=== PATIENT | male | born 1960 | race Two or more races ===

== ENCOUNTER 2020-02-05 10:38 | Inpatient (IN) | payer MEDICARE, OTHER ==
[~2020-02-05] VITALS: Ht 180.3 cm; Wt 83.0 kg
--- NOTE | 2020-02-05 10:38 | NUR ---
PT KALYN HERNANDEZ FROM [facility]. ON A 5150 HOLD FOR TRYING TO JUMP OFF A FREEWAY BRIDGE. 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 VERBALLY RESPONSIVE. AWAITING MD AMEZQUITA.
--- NOTE | 2020-02-05 10:40 | NUR ---
DR ANAYA AT BEDSIDE FOR EVAL.
--- NOTE | 2020-02-05 10:50 | NUR ---
ETL LEAD AT BEDSIDE FOR BLOOD DRAW.
[2020-02-05 10:55] LABS: BASOPHILS % (AUTO) 0.6 % (0.0-2.0); EOSINOPHILS % (AUTO) 4.7 % (0.0-6.0); HEMATOCRIT 41 % (39-51); HEMOGLOBIN 13.3 g/dL (13.5-17.5); MEAN CORPUSCULAR HGB CONC 32 g/dl (31.0-36.0); MEAN CORPUSCULAR VOLUME 92 fL (80-96); MONOCYTES # (AUTO) 0.5 /CMM (0.1-1.30); MONOCYTES % (AUTO) 7.7 % (2.0-12.0); NEUTROPHILS # (AUTO) 4.2 /CMM (1.8-8.9); PLATELET COUNT (AUTO) 202 /CMM (150-450); RED BLOOD CELL COUNT(AUTO) 4.46 MIL/uL (4.5-6.0)
[2020-02-05 11:01] LABS: CALCIUM, SERUM 8.3 mg/dL (8.5-10.1); CARBON DIOXIDE 29 mmol/L (21-32); CHLORIDE 107 mmol/L (98-107); GLUCOSE 79 mg/dL (74-106); POTASSIUM 4.2 mmol/L (3.5-5.1); SODIUM SERUM 143 mmol/L (136-145); UREA NITROGEN, BLOOD 14 mg/dL (7-18)
--- NOTE | 2020-02-05 11:05 | NUR ---
PT STILL UNABLE TO PROVIDE URINE SAMPLE AT THIS TIME.
[2020-02-05 11:07] LABS: ALANINE AMINOTRANSFERASE 108 U/L (12-78); ALBUMIN 3.2 g/dL (3.4-5.0); ALCOHOL, BLOOD < 3 mg/dL (0-0); ALKALINE PHOSPHATASE 54 U/L (46-116); ASPARTATE AMINOTRANSFERASE 59 U/L (15-37); BILIRUBIN,DIRECT 0.1 mg/dL (0.0-0.2); BILIRUBIN,TOTAL 0.2 mg/dL (0.2-1.0); TOTAL PROTEIN, SERUM 6.3 g/dL (6.4-8.2)
[2020-02-05 11:08] LABS: ACETAMINOPHEN < 2 ug/ml (10-30); SALICYLATE < 2.8 mg/dL (2.8-20.0)
[2020-02-05] MEDS ORDERED: HALDOL (11:11)
--- NOTE | 2020-02-05 12:08 | NUR ---
TRANSPORTED TO FLOOR IN STABLE CONDITION.
--- NOTE | 2020-02-05 12:15 | NUR ---
JAVA WEB ENGINEER NOTE: PATIENT IS A 60 YEAR OLD MALE ADMITTED TO THE UNIT ON A 5150 HOLD FOR DTS. PATIENT WAS SEEN BY A PASSERBY ATTEMPTING TO CLIMB THE FENCE OF A FREEWAY OVERPASS AND CALLED 911. PT ADMITTED HE WAS ATTEMPTING TO COMMIT SUICIDE BY JUMPING OFF THE FREEWAY OVERPASS. PT HAS A HISTORY OF PARANOID SCHIZOPHRENIA AND WAS TRIGGERED BY DELUSIONAL THOUGHTS OF NEEDING TO KILL SELF IN ORDER TO STAY A EVANGELICAL DUE TO FEELINGS OF GUILT. PT REPORTS NO MEDICAL HISTORY AND COMPLIANCE WITH UNKNOWN DOSE OF HALDOL DAILY. PT IS A+OX3, ABLE TO MAKE NEEDS KNWON. PT DENIES SI AT PRESENT TIME. PT IS ABLE TO CONTRACT FOR SAFETY AT PRESENT TIME. DENIES HI/AH/VH BUT APPEARS TO BE RESPONDING TO INTERNAL STIMULI. PT HAS A FLAT AFFECT AND IS WITHDRAWN. SPEECH IS CLEAR, PRESSURED AND RAMBLING. PT IS DISHEVELED AND UNCLEAN. PT REPORTS BEING HOMELESS FOR 1.5 MONTHS. PT'S SKIN IS INTACT. 3+ EDEMA NOTED TO LEFT LOWER LEG, 2+ NOTED TO RIGHT. PT PLACED CLOSE TO THE NURSES STATION WITH Q15MIN CHECKS. PT ORIENTED TO THE UNIT. HANDBOOK GIVEN WITH PATIENT'S RIGHTS AND GUIDE TO PRESCRIPTIONS. PT VERBALIZED UNDERSTANDING.
[2020-02-05] MEDS ORDERED: BLOOD SUGAR DIAGNOSTIC 1 EACH STRIP IN ONE (13:00)
[2020-02-05] MEDS ORDERED: MAGNESIUM HYDROXIDE 30 ML UDC PO PRN (13:00)
[2020-02-05] MEDS ORDERED: MAG HYDROX/AL HYDROX/SIMETH 30 ML UDC PO PRN (13:00)
[2020-02-05 16:00] VITALS: BP 133/81
--- NOTE | 2020-02-05 19:42 | NUR ---
RN OPENING NOTES RECEIVED REPORT FROM DAYSHIFT RN. FOUND Pt AWAKE, RESTING IN BED. NO S/S OF ACUTE DISTRESS OR SOB NOTED. Pt IS A/OX3, VERBAL, ABLE TO MAKE NEEDS KNOWN. SAFETY MEASURES IN PLACE. WILL CONTINUE TO MONITOR Pt's CONDITION AND SAFETY THROUGHOUT THE NIGHT.
[2020-02-05 20:02] VITALS: BP 141/80
[2020-02-05] MEDS: ACETAMINOPHEN 325 MG TABLET PO PRN (20:21)
[2020-02-05 20:30] VITALS: BP 141/80
--- NOTE | 2020-02-06 06:30 | NUR ---
RN CLOSING NOTES Pt IS UP TAKING A SHOWER AT THIS TIME. NO SIGNIFICANT CHANGES NOTED DURING THE NIGHT. NO S/S OF ACUTE DISTRESS OR SOB NOTED. ALL NEEDS MET AND ATTENDED TO. WILL ENDORSE TO DAYSHIFT RN FOR Pt's CAM.
[2020-02-06 07:26] LABS: ALBUMIN 3.2 g/dL (3.4-5.0); BILIRUBIN,TOTAL 0.3 mg/dL (0.2-1.0); CALCIUM, SERUM 9.6 mg/dL (8.5-10.1); POTASSIUM 3.6 mmol/L (3.5-5.1); TOTAL PROTEIN, SERUM 6.4 g/dL (6.4-8.2)
[2020-02-06 07:32] LABS: CHOLESTEROL 181 mg/dL (<200); HDL CHOLESTEROL 62 mg/dL (40-60); LDL 103 mg/dL (0-99); TRIGLYCERIDES 91 mg/dL (30-150)
[2020-02-06 08:00] VITALS: BP 150/90
--- NOTE | 2020-02-06 09:46 | NUR ---
GPS RN OPENING NOTE: PT AWAKE IN THE ROOM TOOK A SHOWER NO ACUTE DISTRESS NOTED. PT DENIES CURRENT SUICIDAL THOUGHTS. PT IS HOMELESS. PT HAS HISTORY OF PARANOID SCHIZOPHRENIA AND TAKES UNKNOWN . WILL CONT TO MONITOR PT FOR SAFETY AND BEHAVIOR PER GPS PROTOCOL.
--- NOTE | 2020-02-06 10:13 | NUR ---
GPS RN NOTE: ORDERS FROM DR VALDEZ TO COLLECT SWAB FOR COVID 19 TEST NO ISOLATION NEEDED. ORDER PLACED AND CARED OUT. Addendum: 02/06/20 at 1020 by ANGELA ALMANZAR RN WRONG NOTE FOR DIFFERENT PT
--- NOTE | 2020-02-06 12:06 | NUR ---
INITIAL DISCHARGE NOTE: Pt is homeless and may need placement. SW will help form a safe and proper discharge in collaboration with MD.
--- NOTE | 2020-02-06 13:48 | NUR ---
Individual Counseling: This SW met with the pt. at bedside. The patient presented laying in his bed with bed covers up to his neck. The SW engaged the patient in a conversation about his current mood. However, patient did not respond to SW. The patient did not make appropriate eye contact. Patient's was looking around towards ceiling. SW encouraged patient to participate in therapeutic millieu. Patient did not respond to SW's questions. SW asked patient if he would prefer that SW return later. SW asked patient if he had any questions for SW. Patient stated, " I want to get out of here as soon as possible. The patient's voice was shaky and appeared highly anxious. SW informed patient that other SW will assist with discharge planning. Patient will be invited to the next therapeutic millieu.
[2020-02-06 16:00] VITALS: BP 135/66
--- NOTE | 2020-02-06 17:41 | NUR ---
GPS RN NOTE: PATIENT FEELING ANXIOUS KIMBERLY VOICES TELLING HIM ABOUT GILT OF GOD.ATIVAN 1 MG PO PRN GIVEN PER ORDER WILL CONTINUE MONITORING FOR SAFETY AND BEHAVIOR.
[2020-02-06 20:00] VITALS: BP 132/77
[2020-02-06 20:04] VITALS: BP 132/77
[2020-02-06] MEDS: BENZTROPINE MESYLATE (1 MG) 1 MG TABLET PO SCH (20:41)
[2020-02-06] MEDS: HALOPERIDOL 5 MG TABLET PO SCH (20:41)
[2020-02-07 08:52] VITALS: BP 125/80
[2020-02-07] MEDS: BENZTROPINE MESYLATE (1 MG) 1 MG TABLET PO SCH ×4 (08:52→16:33)
[2020-02-07] MEDS: HALOPERIDOL 5 MG TABLET PO SCH ×4 (08:52→16:33)
--- NOTE | 2020-02-07 10:40 | NUR ---
GPS/RN-NOTES DR. MICHAEL CASETLLANO IN THE UNIT WITH VERBAL ORDER OF ACCU CHECK BID ,NO COVERAGE. NOTED AND CARRIED OUT.
--- NOTE | 2020-02-07 14:27 | NUR ---
INDIVIDUAL INTERVENTION: SW attempted to provide individual counseling to pt, however, pt did not respond to SW pt did not engage in conversation and did not maintain eye contact. Pt then got up from bed and went to the shower room. Pt then pointed at the door so it could be opened. Pt has been displaying OCD behaviors and showers several times a day.
[2020-02-07] MEDS: BLOOD SUGAR DIAGNOSTIC 1 EACH STRIP IN SCH (16:38)
[2020-02-07 17:54] VITALS: BP 132/78
[2020-02-07 20:13] VITALS: BP_SYST 135; BP_DIAS 79; BP_DIAS 99
[2020-02-07] MEDS: DIVALPROEX SODIUM 250 MG TABLET.DR PO SCH (21:06)
--- NOTE | 2020-02-08 00:37 | NUR ---
GPS RN NOTES: REFUSED RESTORIL UPON DOING ROUNDS, PT AWAKE AND TALKING TO SELF. ENCOURAGE PT TO EXPRESS THOUGHTS AND FEELINGS. PT STATED, "CAN I JUST HAVE A PENCIL AND PAPER?" GAVE PT PAPER AND PENCIL. OFFERED PT RESTORIL PO PRN ORDERED. PT REFUSED AND STATED THAT HE ALREADY SLEPT WELL DURING THE DAY. EXPLAIN RISKS AND BENEFITS OF SLEEP. PT STILL REFUSED X 3.
[2020-02-08 08:00] VITALS: BP 120/75
[2020-02-08] MEDS: BLOOD SUGAR DIAGNOSTIC 1 EACH STRIP IN SCH ×2 (09:20→16:19)
[2020-02-08] MEDS: BENZTROPINE MESYLATE (1 MG) 1 MG TABLET PO SCH ×3 (09:20→16:19)
[2020-02-08] MEDS: DIVALPROEX SODIUM 250 MG TABLET.DR PO SCH ×3 (09:20→16:18)
[2020-02-08] MEDS: HALOPERIDOL 5 MG TABLET PO SCH ×3 (09:20→16:19)
--- NOTE | 2020-02-08 15:58 | NUR ---
INDIVIDUAL INTERVENTION: SW attempted to provide individual counseling to pt, however, pt did not respond to SW pt did not engage in conversation and did not maintain eye contact. Pt is easily agitated and labile. Pt not appropriate for individual counseling at this time.
[2020-02-08 16:00] VITALS: BP 119/70
--- NOTE | 2020-02-08 18:25 | NUR ---
Closing note Patient sit in chair in dining room, does no appears pain or any discomfort. Noticed agitated, anxious behavior, given prn Remeron. Respiratory even and unlabored in room air. Skin is war to touch, kept clean/dry. Will continue to monitor for safety. Addendum: 02/08/20 at 1830 by MIGUEL A GAMEZ RN Error
--- NOTE | 2020-02-08 18:30 | NUR ---
Closing note Patient in bed in room, does no appears pain or any discomfort, pt remains calm. Respiratory even and unlabored in room air. Skin is war to touch, clean/dry, Keep bed in lock with low position. Will continue to monitor for safety.
[2020-02-08 20:20] VITALS: BP 132/72
[2020-02-09 08:00] VITALS: BP 138/87
[2020-02-09] MEDS: BENZTROPINE MESYLATE (1 MG) 1 MG TABLET PO SCH ×3 (08:34→21:18)
[2020-02-09] MEDS: DIVALPROEX SODIUM 250 MG TABLET.DR PO SCH (08:34)
[2020-02-09] MEDS: HALOPERIDOL 5 MG TABLET PO SCH ×3 (08:34→21:18)
[2020-02-09] MEDS: BLOOD SUGAR DIAGNOSTIC 1 EACH STRIP IN SCH ×2 (09:00→16:49)
--- NOTE | 2020-02-09 10:48 | NUR ---
GPS/RN PT WAS COMPLIANT WITH SCHEDULED MEDS FOR 0900, HOWEVER HE STATING THAT HE IS NOT GOING TO TAKE ANY MEDS TILL HE SEE HIS DOCTOR.
[2020-02-09] MEDS ORDERED: LORAZEPAM INJ 2 MG/ML VIAL IM ONE (11:00)
[2020-02-09] MEDS ORDERED: HALOPERIDOL LACTATE INJ 5 MG/ML VIAL IM ONE (11:00)
[2020-02-09] MEDS ORDERED: diphenhydrAMINE HCL 50 MG/ML VIAL IM ONE (11:00)
--- NOTE | 2020-02-09 11:15 | NUR ---
GPS/RN chemical restraint haldol 5mg im, ativan 2mg im and benadryl 25mg given as per dr Duke orders for agressive behavior, screaming and not being redirectable
[2020-02-09 16:00] VITALS: BP 141/88
--- NOTE | 2020-02-09 16:49 | NUR ---
GPS/RN PT REFUSED ACCUCHECK OFFERED X3.
[2020-02-09] MEDS: LORAZEPAM 0.5 MG TABLET PO PRN (21:17)
[2020-02-09] MEDS: DIVALPROEX SODIUM 500 MG TABLET.DR PO SCH (21:17)
[2020-02-09] MEDS: TEMAZEPAM 7.5 MG CAPSULE PO PRN (21:17)
[2020-02-10 08:00] VITALS: BP 132/76
[2020-02-10] MEDS: DIVALPROEX SODIUM 500 MG TABLET.DR PO SCH ×2 (08:28→20:16)
[2020-02-10] MEDS: BENZTROPINE MESYLATE (1 MG) 1 MG TABLET PO SCH ×3 (08:28→20:16)
[2020-02-10] MEDS: HALOPERIDOL 5 MG TABLET PO SCH ×3 (08:29→21:12)
[2020-02-10] MEDS: BLOOD SUGAR DIAGNOSTIC 1 EACH STRIP IN SCH ×2 (09:00→17:00)
--- NOTE | 2020-02-10 11:49 | NUR ---
GPS/RN PT REFUSED 0900 ACCUCHECK OFFERED X3.
[2020-02-10 16:00] VITALS: BP 133/63
[2020-02-10 20:17] VITALS: BP 135/73
[2020-02-11 08:00] VITALS: BP 141/75
[2020-02-11] MEDS: DIVALPROEX SODIUM 500 MG TABLET.DR PO SCH ×2 (08:45→21:05)
[2020-02-11] MEDS: BENZTROPINE MESYLATE (1 MG) 1 MG TABLET PO SCH ×3 (08:46→21:04)
[2020-02-11] MEDS: HALOPERIDOL 5 MG TABLET PO SCH ×3 (08:46→21:05)
[2020-02-11] MEDS: BLOOD SUGAR DIAGNOSTIC 1 EACH STRIP IN SCH ×3 (08:54→16:42)
--- NOTE | 2020-02-11 13:23 | NUR ---
RN NOTE: EMERGENCY IM PT AGITATED, IRRITABLE, POSTURING AT STAFF. UNABLE TO BE REDIRECTED. DELUSIONAL. REQUESTING SHOT.ORDER FROM DR. JEFFRIES HALL 5MG, ATIVAN 2MG, BENADRYL 25MG IM. IM ADMINISTERED IN BILAT BUTTOCK. PT REQUESTED SHOTS IN SEPARATE BUTTOCK. VOLUNTARY LAYED ON BED FOR SHOT. NO DEFIANCE. PT COOPERATIVE WITH IM AND THANKED STAFF AFTER ADMINISTRATION.
[2020-02-11] MEDS ORDERED: LORAZEPAM INJ 2 MG/ML VIAL IV ONE (13:30)
[2020-02-11] MEDS ORDERED: diphenhydrAMINE HCL 50 MG/ML VIAL IM ONE (13:30)
[2020-02-11] MEDS ORDERED: HALOPERIDOL LACTATE INJ 5 MG/ML VIAL IM ONE (13:30)
[2020-02-11 20:15] VITALS: BP 119/70
[2020-02-12 08:00] VITALS: BP 110/67
[2020-02-12] MEDS: BENZTROPINE MESYLATE (1 MG) 1 MG TABLET PO SCH ×3 (08:31→16:23)
[2020-02-12] MEDS: DIVALPROEX SODIUM 500 MG TABLET.DR PO SCH ×2 (08:31→21:05)
[2020-02-12] MEDS: HALOPERIDOL 5 MG TABLET PO SCH ×2 (08:31→16:23)
[2020-02-12] MEDS: BLOOD SUGAR DIAGNOSTIC 1 EACH STRIP IN SCH ×2 (08:41→16:43)
--- NOTE | 2020-02-12 09:14 | NUR ---
SNF REFERRAL: HENRRY faxed SNF referral to [facility] ([facility]) [address] [address] for review.
--- NOTE | 2020-02-12 10:30 | NUR ---
SNF REFERRAL: SW received a call from Chris regional director of finance at [facility] ([facility]) [address] [address] stating pt cannot be accepted due to not having Medicare part A.
--- NOTE | 2020-02-12 12:18 | NUR ---
SNF REFERRAL: HENRRY faxed SNF referral to Sammie contract administration coordinator at [facility] Address: [address], [place] [address] for review.
--- NOTE | 2020-02-12 12:21 | NUR ---
RN NOTE: PT MEDICATION REFUSAL PT REFUSED 1300 DOSE COGENTIN 1MG PO. STATED 3X "IM NOT GOING TO TAKE IT UNTIL I TALK TO THE DOCTOR". EDUCATED PT ON NEED FOR MEDICATION COMPLIANCE AND PT CONT TO REFUSE X3.
--- NOTE | 2020-02-12 13:00 | NUR ---
SNF REFERRAL: SW received a call from Sammie department coordinator at [facility] Address: [address] [place] [address] stating pt has been accepted to the facility.
--- NOTE | 2020-02-12 14:11 | NUR ---
GROUP THERAPY: SW encouraged pt to attend group on this present day to discuss discharge plan. Pt did not want to participate, when asked questions pt became mute. SW observed pt earlier today talking to nurse, however, on approach pt did not engage in conversation. Pt was sitting eating crackers watching TV. Pt was given an IM yesterday due to agitation.
[2020-02-12 16:00] VITALS: BP 139/74
[2020-02-12] MEDS: ACETAMINOPHEN 325 MG TABLET PO PRN (17:54)
[2020-02-12] MEDS: LORAZEPAM 0.5 MG TABLET PO PRN (17:54)
--- NOTE | 2020-02-12 17:54 | NUR ---
RN NOTE: ANXIETY AND GENERALIZED PAIN PT C/O INCREASED ANXIETY. REPORTS NEEDING TO "REPENT TO THE LORD" AND GENERALIZED PAIN. MEDICATED WITH ATIVAN 1MG PO AND TYLENOL 650 MG PO PRN
[2020-02-12 20:47] VITALS: BP 142/72
[2020-02-13 08:00] VITALS: BP 129/81
[2020-02-13] MEDS: BENZTROPINE MESYLATE (1 MG) 1 MG TABLET PO SCH ×3 (08:31→16:43)
[2020-02-13] MEDS: DIVALPROEX SODIUM 500 MG TABLET.DR PO SCH ×2 (08:31→20:13)
[2020-02-13] MEDS: HALOPERIDOL 5 MG TABLET PO SCH ×3 (08:31→16:44)
[2020-02-13] MEDS: BLOOD SUGAR DIAGNOSTIC 1 EACH STRIP IN SCH ×2 (09:00→16:31)
--- NOTE | 2020-02-13 13:54 | NUR ---
Individual Counseling: This SW met with the patient at bedside to facilitate individual counseling regarding support systems. The patient was receptive to speaking with SW. Patient states that he has 4 siblings, however, they are not in speaking terms. Per patient he has a godfather who he can call when in need. The patient stated that he jacob by praying. Patient was disorganized not being oriented to place as evidenced by pt, stating," I will be here for 3 years because the cut out press operator gave me a good deal". SW informed patient that he is currently in [facility] GPS unit. SW engaged patient on conversation regarding what the patient's plan after discharge is as he is currently experiencing homelessness. The patient stated, "I plan to do football".
[2020-02-13 16:00] VITALS: BP 128/69
[2020-02-13 20:02] VITALS: BP 148/75
[2020-02-13] MEDS: TEMAZEPAM 7.5 MG CAPSULE PO PRN (22:38)
--- NOTE | 2020-02-13 22:38 | NUR ---
GPS-RN NOTE: INSOMNIA PATIENT C/O INABILITY TO SLEEP. ADMINISTERED RESTORIL 15MG PO ORDERED. WILL CONTINUE TO MONITOR FOR SAFETY.
[2020-02-14 08:00] VITALS: BP 125/87
[2020-02-14] MEDS: DIVALPROEX SODIUM 500 MG TABLET.DR PO SCH ×3 (08:09→21:53)
[2020-02-14] MEDS: HALOPERIDOL 5 MG TABLET PO SCH ×3 (08:09→16:33)
[2020-02-14] MEDS: BENZTROPINE MESYLATE (1 MG) 1 MG TABLET PO SCH ×3 (08:09→16:33)
[2020-02-14] MEDS: BLOOD SUGAR DIAGNOSTIC 1 EACH STRIP IN SCH ×2 (09:14→17:00)
[2020-02-14 16:00] VITALS: BP 133/78
--- NOTE | 2020-02-14 19:30 | NUR ---
GPS RN OPENING NOTE: RECEIVED PATIENT RESTING IN ROOM. A/OX3, NO ACUTE DISTRESS NOTED. DENIES SI/HI/AVH AT THIS TIME. NO C/O PAIN OR DISCOMFORT. NO AGITATION NOTED. SAFETY PRECAUTIONS IN PLACE. WILL CONTINUE TO MONITOR Q15MIN ROUNDS FOR SAFETY AND BEHAVIOR.
--- NOTE | 2020-02-14 20:00 | NUR ---
GPS RN NOTE PT. REFUSED TO TAKE V/S. WILL CONTINUE TO MONITOR FOR SAFETY AND BEHAVIOR.
--- NOTE | 2020-02-14 21:34 | NUR ---
GPS RN NOTE: PT. REFUSED TO TAKE SCHEDULED 2100 MEDICATION. REFUSED DEPAKOTE 500 MG PO. EXPLAINED RISKS AND BENEFITS. OFFERED 3X AND PT. STILL REFUSED. WILL CONTINUE TO MONITOR FOR SAFETY AND BEHAVIOR Addendum: 02/14/20 at 2202 by MARCIE KEMP RN PT. SPOKE TO CHARGE NURSE AND ASKED IF HE CAN TAKE HIS SCHEDULED 2100 MEDICATION AFTER REFUSING. RN ADMINISTERED 2100 MEDICATION DEPAKOTE 500 MG PO @ 2152. WILL CONTINUE TO MONITOR FOR SAFETY AND BEHAVIOR
[2020-02-15 08:00] VITALS: BP 140/59
[2020-02-15] MEDS: BENZTROPINE MESYLATE (1 MG) 1 MG TABLET PO SCH ×3 (09:00→17:00)
[2020-02-15] MEDS: DIVALPROEX SODIUM 500 MG TABLET.DR PO SCH ×2 (09:00→21:23)
[2020-02-15] MEDS: HALOPERIDOL 5 MG TABLET PO SCH ×3 (09:00→21:24)
[2020-02-15] MEDS: BLOOD SUGAR DIAGNOSTIC 1 EACH STRIP IN SCH ×2 (09:00→16:30)
--- NOTE | 2020-02-15 10:15 | NUR ---
SNF Contact: SW contacted Sammie , clinic coordinator at [facility], and left a voicemail stating that the SW would like to know if the pt will have a bed on Wednesday as that is his tentative discharge date.
--- NOTE | 2020-02-15 14:19 | NUR ---
Group Note/Individual Session: SW encouraged the pt to participate in group therapy but the pt stated that there was no one that he would want to talk to at this point. Pt stated that he wanted to be discharged soon and the SW expressed that will not happen if he continues to refuse his medications. Pt stated that he does not trust his medications. SW informed him that he has been taking the same ones for a few days and he has shown improvement but stated that he needs to continue taking them. Pt stated that he would try.
[2020-02-15 16:00] VITALS: BP 154/91
--- NOTE | 2020-02-15 17:35 | NUR ---
GPS RN note: Haldol and med refusal patient continues to refuse medications despite education. With encouragement patient took half of his dose of Haldol, 5 mg. Will continue to monitor
[2020-02-15 20:34] VITALS: BP 145/72
[2020-02-16 08:00] VITALS: BP 137/83
[2020-02-16] MEDS: DIVALPROEX SODIUM 500 MG TABLET.DR PO SCH ×2 (08:07→21:11)
[2020-02-16] MEDS: LORAZEPAM 0.5 MG TABLET PO PRN (08:07)
[2020-02-16] MEDS: BENZTROPINE MESYLATE (1 MG) 1 MG TABLET PO SCH ×3 (08:07→17:17)
[2020-02-16] MEDS: HALOPERIDOL 5 MG TABLET PO SCH ×3 (08:07→21:11)
[2020-02-16] MEDS: BLOOD SUGAR DIAGNOSTIC 1 EACH STRIP IN SCH (08:07)
--- NOTE | 2020-02-16 15:09 | NUR ---
GROUP THERAPY: HENRRY encouraged the pt to participate in group therapy but the pt refused stating he was fine being in bed and did not have anything to talk about. SW provided individual intervention and asked pt if he was hearing voices, pt did not respond to SW and then stated he needed to stay in the hospital longer. Pt then stated that he was fine and thanked HENRRY for coming and then closed his eyes.
--- NOTE | 2020-02-16 15:49 | NUR ---
SNF Contact: SW contacted Sammie , tax collection coordinator at [facility], and left a voicemail stating that the SW would like to know if the pt will have a bed on Wednesday as that is his tentative discharge date.
--- NOTE | 2020-02-16 16:00 | NUR ---
SNF CONTACT: HENRRY contacted Sammie , marketing operations coordinator at [facility] who stated she will try to have a bed for pt on Wednesday.
--- NOTE | 2020-02-16 19:20 | NUR ---
GPS RN OPENING NOTE: RECEIVED PATIENT RESTING IN ROOM. A/OX3, NO ACUTE DISTRESS NOTED. DENIES SI/HI/AVH AT THIS TIME. NO C/O PAIN OR DISCOMFORT. NO AGITATION NOTED. SAFETY PRECAUTIONS IN PLACE. WILL CONTINUE TO MONITOR FOR SAFETY AND BEHAVIOR.
[2020-02-16 20:28] VITALS: BP 158/81
[2020-02-17 08:00] VITALS: BP 131/85
[2020-02-17] MEDS: HALOPERIDOL 5 MG TABLET PO SCH ×3 (08:20→21:52)
[2020-02-17] MEDS: BENZTROPINE MESYLATE (1 MG) 1 MG TABLET PO SCH ×3 (08:21→16:28)
[2020-02-17] MEDS: LORAZEPAM 0.5 MG TABLET PO PRN (08:21)
[2020-02-17] MEDS: DIVALPROEX SODIUM 500 MG TABLET.DR PO SCH ×2 (08:21→21:52)
[2020-02-17 16:00] VITALS: BP 137/71
[2020-02-17 19:54] VITALS: BP 133/75
[2020-02-18] MEDS: ACETAMINOPHEN 325 MG TABLET PO PRN (06:45)
--- NOTE | 2020-02-18 06:45 | NUR ---
GPS RN NOTE: PAIN PT. C/O OF KNEE PAIN AND REQUESTED FOR TYLENOL. ADMINISTERED TYLENOL 650 MG PO PRN ORDERED. WILL CONTINUE TO MONITOR FOR SAFETY AND BEHAVIOR
[2020-02-18 08:00] VITALS: BP 145/75
[2020-02-18] MEDS: DIVALPROEX SODIUM 500 MG TABLET.DR PO SCH ×2 (08:25→22:12)
[2020-02-18] MEDS: LORAZEPAM 0.5 MG TABLET PO PRN (08:25)
[2020-02-18] MEDS: BENZTROPINE MESYLATE (1 MG) 1 MG TABLET PO SCH ×3 (08:25→16:45)
[2020-02-18] MEDS: HALOPERIDOL 5 MG TABLET PO SCH ×3 (08:26→22:13)
[2020-02-18 16:00] VITALS: BP 140/77
[2020-02-18 20:10] VITALS: BP 136/73
[2020-02-19 07:49] LABS: BASOPHILS % (AUTO) 0.5 % (0.0-2.0); EOSINOPHILS % (AUTO) 1.1 % (0.0-6.0); HEMATOCRIT 42 % (39-51); HEMOGLOBIN 13.5 g/dL (13.5-17.5); LYMPHOCYTES # (AUTO) 1.1 /CMM (0.8-4.8); LYMPHOCYTES % (AUTO) 22.5 % (20.0-44.0); MEAN CORPUSCULAR HGB CONC 32 g/dl (31.0-36.0); MEAN CORPUSCULAR VOLUME 91 fL (80-96); MONOCYTES # (AUTO) 0.4 /CMM (0.1-1.30); MONOCYTES % (AUTO) 7.1 % (2.0-12.0); NEUTROPHILS # (AUTO) 3.5 /CMM (1.8-8.9); NEUTROPHILS % (AUTO) 68.8 % (43.0-81.0); PLATELET COUNT (AUTO) 177 /CMM (150-450)
[2020-02-19 08:00] VITALS: BP 132/71
[2020-02-19 08:11] LABS: CALCIUM, SERUM 8.2 mg/dL (8.5-10.1); CREATININE 1.1 mg/dL (0.6-1.3); MAGNESIUM 2.1 mg/dL (1.8-2.4); PHOSPHORUS 4.1 mg/dL (2.5-4.9); POTASSIUM 3.7 mmol/L (3.5-5.1)
[2020-02-19] MEDS: BENZTROPINE MESYLATE (1 MG) 1 MG TABLET PO SCH ×3 (08:17→16:23)
[2020-02-19] MEDS: DIVALPROEX SODIUM 500 MG TABLET.DR PO SCH ×2 (08:17→20:24)
[2020-02-19] MEDS: HALOPERIDOL 5 MG TABLET PO SCH ×3 (08:17→21:47)
--- NOTE | 2020-02-19 08:41 | NUR ---
SNF CONTACT: HENRRY contacted Sammie , clinical data coordinator at [facility] who stated she is working on making an observation bed for pt and will know after her 9:00am meeting. She requested HENRRY fax clinical notes for the last 72 hours at fo review.
--- NOTE | 2020-02-19 08:55 | NUR ---
SNF REFERRAL: SW faxed SNF referral to [facility] ([facility]) Address: [address] [place] [address] for review.
--- NOTE | 2020-02-19 10:00 | NUR ---
SNF REFERRAL: HENRRY received a call from Gerardo, night coordinator at [facility] ([facility]) Address: [address], [place] [address] stating they ran into issues with pts insurance and they will need to verify pts insurance eligibility before accepting pt. Addendum: 02/19/20 at 1253 by DENIS SALES Tyler, also stated that if pt is accepted he will need a COVID test.
--- NOTE | 2020-02-19 12:52 | NUR ---
SNF CONTACT: HENRRY contacted Sammie , warehouse logistics coordinator at [facility] who stated she is unable to make a bed for pt on this present day and requested pt be discharged tomorrow.
--- NOTE | 2020-02-19 13:00 | NUR ---
SNF REFERRAL: SW received a call from Gerardo, educational technology coordinator at [facility] ([facility]) Address: [address] [place] [address] stating pt has been accepted to the facility. HENRRY stated that COVID results will be available in 48 hours.
--- NOTE | 2020-02-19 15:25 | NUR ---
RN NOTE: COVID TEST COVID TEST PERFORMED AND SENT TO LAB
--- NOTE | 2020-02-19 15:52 | NUR ---
GROUP THERAPY: SW encouraged the pt to participate in group therapy but the pt refused stating that he wanted to stay in his bed. SW informed him that he will be discharged on Wednesday after his COVID results came in. Pt agreed and said "okay good, that's fine."
[2020-02-19 16:00] VITALS: BP 137/69
[2020-02-19 20:00] VITALS: BP 141/72
[2020-02-19 20:03] VITALS: BP 141/72
[2020-02-20 08:00] VITALS: BP 118/70
[2020-02-20] MEDS: HALOPERIDOL 5 MG TABLET PO SCH ×3 (09:44→22:14)
[2020-02-20] MEDS: DIVALPROEX SODIUM 500 MG TABLET.DR PO SCH ×2 (09:44→21:06)
[2020-02-20] MEDS: BENZTROPINE MESYLATE (1 MG) 1 MG TABLET PO SCH ×3 (09:45→17:23)
--- NOTE | 2020-02-20 15:20 | NUR ---
GROUP NOTE: SW encouraged the pt to participate in group therapy but the pt refused and stated he did not want to talk to the SW. SW attempted to engage pt in individual counseling but pt refused to engage with SW. SW informed pt that he will be discharged tomorrow Wednesday02/21/20 to a SNF and pt just responded with "alright."
[2020-02-20 16:00] VITALS: BP 137/63
--- NOTE | 2020-02-20 18:00 | NUR ---
quiet,isolative,appears depressed,denies suicidal thoughts.
[2020-02-20 20:00] VITALS: BP 134/74
[2020-02-21 08:00] VITALS: BP 132/78
[2020-02-21] MEDS: DIVALPROEX SODIUM 500 MG TABLET.DR PO SCH (09:41)
[2020-02-21] MEDS: BENZTROPINE MESYLATE (1 MG) 1 MG TABLET PO SCH ×2 (09:42→13:06)
[2020-02-21] MEDS: HALOPERIDOL 5 MG TABLET PO SCH (09:42)
--- NOTE | 2020-02-21 12:02 | NUR ---
DISCHARGE NOTE: Pt is discharging at 1:00pm to [facility] ([facility]) Address: [address] [place] [address] via [facility]. Pt is homeless and has no family to notify. Pt is ambulatory and appears well groomed and dressed. Pts mood is euthymic with congruent affect. Pt denies suicidal/homicidal ideation and denies visual/auditory hallucinations. Pt will be under the care of Psychiatrist: Dr. Ally Knight [address] [place] [id number] and Class C Driver: Dr Verma Address: [address] [place] [address] . The multidisciplinary exit care form was done, printed, signed, and given to the patient.
--- NOTE | 2020-02-21 13:00 | NUR ---
PT. TRANSFERRING OUT TO SNF.REPORT CALLED TO NURSE HUSSAIN.ALL PAPERS SIGNED.BELONGING SHEET SIGNED.PT. DENIES S/I WELL HOMICIDAL IDEATION.REPORT TO MAIN LINE ASSEMBLER.TAKEN TO [facility] [place] VIA AMB.
== END 2020-02-21 13:15 | DRG 885 ==
LOC: ER 10:41 → GPS 11:31
PROVIDERS: ADMIT Psychiatry & Neurology Psychiatry; ATTEND Nurse Practitioner Acute Care
DX: F25.9 Schizoaffective disorder, unspecified (principal); R45.851 Suicidal ideations; F29 Unspecified psychosis not due to a substance or known physiological condition; F41.9 Anxiety disorder, unspecified; F32.9 Major depressive disorder, single episode, unspecified; R60.9 Edema, unspecified; Z91.14 Patient's other noncompliance with medication regimen
CPT/HCPCS: 36415; 80048-TC; 80053-TC; 80061-TC; 80076-TC; 80164-TC; 82962-TC; 83735-TC; 84100-TC; 85025-TC; 87081-TC; 93307-TC; G0480; J1200; J1630; J2060; U0003-CS